=== PATIENT | female | born 1935 | race Caucasian/White ===

== ENCOUNTER 2020-06-06 10:24 | Emergency (ER) | payer OTHER, BC ==
[2020-06-06 12:01] LABS: Absolute Lymphocytes (CBC) 1.1 K/uL (0.7-4.9); Basophils % 0.5 % (0-1.3); Hematocrit 42.9 % (36.0-45.0); Lymphocytes % 21.9 % (15.3-44.8); MPV 10.4 fL (7.6-11.3)
[2020-06-06 12:09] LABS: Potassium 3.5 mmol/L (3.5-5.1)
--- NOTE | 2020-06-06 12:15 | RAD REPORT ---
EXAM DESCRIPTION: CT - Stone Protocol - 06/06/2020 11:27 am CLINICAL HISTORY: CONSTIPATION COMPARISON: No comparisons TECHNIQUE: Axial [address] imaging of the abdomen and pelvis was performed without IV contrast. No IV contrast was given because of allergy, abnormal renal function, patient refusal or physician re quest. No oral contrast administered. All CT scans are performed using dose optimization technique as appropriate and may include automated exposure control or mA/KV adjustment according to patient size. FINDINGS: No suspicious findings in the lung bases. Cardiomegaly is suspected with minimal pericardi al effusion. Initial images the examination includes a portion of the right breast where there is a 19 millimeter oval mass. The liver, spleen and pancreas show no suspicious findings on non-contrast imaging. Gallbladder is pa cked with multiple large gallstones. No dilatation, wall thickening or pericholecystic fluid. No bili dread tree abnormality. No hydronephrosis or suspicious renal mass. Bilateral adrenal nodularity is present not likely clini loreta significant. Isodense renal masses and pyelonephritis cannot be excluded in the absence of IV c ontrast. The urinary bladder is without significant finding. An enlarged lobulated multi fibroid uter us is present. There is a large partially calcified mass filling the fundus. The multiple fibroids ar e not clearly demarcated. Follow-up outpatient pelvic sonography can be obtained as clinical findings warrant. Rectum is dilated to 8 cm and packed with stool. No evidence for an inguinal or distal rectal mass. N o inflammatory stranding seen. Tortuous and redundant sigmoid colon shows moderate volume without dil atation. Remainder of the colon shows little bowel content. No acute gastric or small bowel finding. Patient has a minimal hiatal hernia. No free air, pneumatosis or free fluid. No bulky lymphadenopathy. Small nonspecific iliac chain lymph nodes are present. Patient has a low-ly ing pannus that extends over the pubic symphysis. There is minimal stranding in the adjacent fatty ti ssues. Approximately 8 centimeter fat containing periumbilical hernia present. No congestion or edema . No suspicious bony findings. IMPRESSION: Rectum is dilated to 8 cm by large stool volume. An obstructing inguinal or distal recta l mass not identified. Moderate stool volume is present in the nondilated sigmoid colon. Patient has a 19 millimeter right breast mass that is only partially imaged on this study. No mammogr aphy is been performed at this facility. Follow-up outpatient mammogram could be performed if the pat ient has not undergone recent mammography at an outside facility. Multi stone cholelithiasis. Enlarged lobulated multi fibroid uterus. Probably benign mild bilateral a drenal nodularity. Large pannus with 8 centimeter fat only periumbilical hernia. Full assessment is limited is the absence of IV contrast.
[2020-06-06] MEDS ORDERED: MAGNESIUM CITRATE 300 ML BOT ONE (12:48)
--- NOTE | 2020-06-06 13:34 | EDPHYS ---
Physician Documentation [facility] Name: Mahnaz Stewart Age: 84 yrs Sex: Female : 1935 Arrival Date: 06/06/2020 Time: 10:27 Bed 15 Private MD: LEIGH Physician Ian Jeronimo HPI: 06/06 11:25 This 84 yrs old Female presents to ER via Unassigned with complaints of jmm Constipation. 11:25 The patient presents with rectal fullness. Onset: The symptoms/episode began/occurred 5 jmm day(s) ago. Associated signs and symptoms: Pertinent positives: constipation, Pertinent negatives: nausea and vomiting, diarrhea, fever. Modifying factors: The symptoms are alleviated by nothing, the symptoms are aggravated by. The patient has not experienced similar symptoms in the past. Historical: - Allergies: 10:40 PENICILLINS; bp - Home Meds: 10:30 Coreg 25 mg Oral tab 1 tab 2 times per day [Active]; amlodipine 10 mg tab 1 tab once bp daily [Active]; doxazosin 2 mg oral tab 1 tab once daily [Active]; Lasix 80 mg Oral tab 1 tab once daily [Active]; levothyroxine 125 mcg tab 1 tab once daily [Active]; Klor-Con 10 10 mEq Oral TbER 1 tab once daily [Active]; - PMHx: 10:32 Hypertension; Thyroid problem; bp - Immunization history:: Adult Immunizations up to date. - Social history:: Smoking status: Patient denies any tobacco usage or history of. ROS: 11:25 Constitutional: Negative for fever, chills, and weight loss, Eyes: Negative for injury, jmm pain, redness, and discharge, ENT: Negative for injury, pain, and discharge, Neck: Negative for injury, pain, and swelling, Cardiovascular: Negative for chest pain, palpitations, and edema, Respiratory: Negative for shortness of breath, cough, wheezing, and pleuritic chest pain, Abdomen/GI: Negative for abdominal pain, nausea, vomiting, diarrhea, and constipation, Back: Negative for injury and pain, MS/Extremity: Negative for injury and deformity, Skin: Negative for injury, rash, and discoloration, Neuro: Negative for headache, weakness, numbness, tingling, and seizure, Psych: Negative for depression, anxiety, suicide ideation, homicidal ideation, and hallucinations. 11:25 All other systems are negative. Exam: 11:25 Constitutional: This is a well developed, well nourished patient who is awake, alert, jmm and in no acute distress. Head/Face: atraumatic. Eyes: EOMI, no conjunctival erythema appreciated ENT: Moist Mucus Membranes Neck: Trachea midline, Supple Chest/axilla: Normal chest wall appearance and motion. Cardiovascular: Regular rate and rhythm. No edema appreciated Respiratory: Normal respirations, no respiratory distress appreciated 11:25 Skin: General appearance color normal MS/ Extremity: Moves all extremities, no obvious deformities appreciated, no edema noted to the lower extremities Neuro: Awake and alert, normal gait Psych: Behavior is normal, Mood is normal, Patient is cooperative and pleasant 11:25 Abdomen/GI: Inspection: obese Palpation: abdomen is soft and non-tender, in all quadrants. Vital Signs: 10:27 BP 132 / 77; Pulse 80; Resp 16; Temp 98.3; Pulse Ox 100% ; bp 11:51 BP 144 / 60; Pulse 76; Resp 16; Pulse Ox 95% ; bp 12:35 BP 155 / 65; Pulse 64; Resp 16; Pulse Ox 97% ; bp 13:50 BP 147 / 65; Pulse 67; Resp 17; Temp 98.5; Pulse Ox 96% ; bp MDM: 10:33 Patient medically screened. paula 13:33 Data reviewed: vital signs, nurses notes. Counseling: I had a detailed discussion with valeria the patient and/or guardian regarding: the historical points, exam findings, and any diagnostic results supporting the discharge/admit diagnosis, radiology results, the need for outpatient follow up, to return to the emergency department if symptoms worsen or persist or if there are any questions or concerns that arise at home. ED course: Patient relieved in the ED. Advised to follow up with pcp for reevaluation. Patient is otherwise given strict return precautions. Patient understood and agrees with the plan of care. . 06/06 10:53 Order name: BMP; Complete Time: 12:16 [facility] 06/06 10:53 Order name: CBC with Diff; Complete Time: 12:16 [facility] 06/06 10:53 Order name: CT Stone Protocol; Complete Time: 12:16 [facility] 06/06 10:53 Order name: Saline Lock; Complete Time: 11:50 [facility] Administered Medications: 12:30 Drug: Magnesium Citrate Liquid 300 ml Route: PO; bp 13:50 Follow up: Response: Marked relief of symptoms bp 13:50 CANCELLED (Patient Refused): Fleet Enema 133 ml MA once bp Disposition: 06/07 09:41 Co-signature as Attending Physician, Ian Jeronimo MD I agree with the assessment and paula plan of care. Disposition: 06/06/20 13:34 Discharged to Home. Impression: Constipation, unspecified. - Condition is Stable. - Discharge Instructions: Constipation, Adult. - Medication Reconciliation Form, Thank You Letter, Antibiotic Education, Prescription Opioid Use form. - Follow up: Private Physician; When: 2 - 3 days; Reason: Recheck today's complaints, Continuance of care, Re-evaluation by your physician. Signatures: Dispatcher [employer] EDIan Garcia MD MD cha Mickail, Joel, PA PA jmm Williams, Irene, RN RN iw Chris Cooper RN RN bp Corrections: (The following items were deleted from the chart) 06/06 10:41 10:32 Allergies: No Known Allergies; bp bp 13:50 13:13 Fleet Enema 133 ml MA once ordered. [facility] bp 14:54 13:34 06/06/2020 13:34 Discharged to Home. Impression: Constipation, unspecified. iw Condition is Stable. Forms are Medication Reconciliation Form, Thank You Letter, Antibiotic Education, Prescription Opioid Use. Follow up: Private Physician; When: 2 - 3 days; Reason: Recheck today's complaints, Continuance of care, Re-evaluation by your physician. [facility]
--- NOTE | 2020-06-06 13:34 | ER ---
Nurse's Notes [facility] Name: Mahnaz Stewart Age: 84 yrs Sex: Female : 1935 Arrival Date: 06/06/2020 Time: 10:27 Bed 15 [facility] MD: Diagnosis: Constipation, unspecified Presentation: 06/06 10:27 Chief complaint: EMS states: CONSTIPATION x5 DAYS, NO RELIEF WITH OTC REMEDIES. bp Coronavirus screen: At this time, the client does not indicate any symptoms associated with coronavirus-19. Ebola Screen: No symptoms or risks identified at this time. Initial Sepsis Screen: Does the patient meet any 2 criteria? No. Patient's initial sepsis screen is negative. Does the patient have a suspected source of infection? No. Patient's initial sepsis screen is negative. Risk Assessment: Do you want to hurt yourself or someone else? Patient reports no desire to harm self or others. 10:27 Method Of Arrival: : [facility] bp 10:27 Acuity: LESLY 3 bp Triage Assessment: 10:32 General: Appears distressed, uncomfortable, obese, Behavior is cooperative, appropriate bp for age, anxious. Pain: Complains of pain in buttocks. EENT: No deficits noted. Neuro: No deficits noted. Cardiovascular: No deficits noted. Respiratory: No deficits noted. GI: : No signs and/or symptoms were reported regarding the genitourinary system. Derm: No deficits noted. Musculoskeletal: No deficits noted. Historical: - Allergies: 10:40 PENICILLINS; bp - Home Meds: 10:30 Coreg 25 mg Oral tab 1 tab 2 times per day [Active]; amlodipine 10 mg tab 1 tab once bp daily [Active]; doxazosin 2 mg oral tab 1 tab once daily [Active]; Lasix 80 mg Oral tab 1 tab once daily [Active]; levothyroxine 125 mcg tab 1 tab once daily [Active]; Klor-Con 10 10 mEq Oral TbER 1 tab once daily [Active]; - PMHx: 10:32 Hypertension; Thyroid problem; bp - Immunization history:: Adult Immunizations up to date. - Social history:: Smoking status: Patient denies any tobacco usage or history of. Screenin:40 Abuse screen: Denies threats or abuse. Denies injuries from another. Nutritional bp screening: No deficits noted. Tuberculosis screening: No symptoms or risk factors identified. Fall Risk None identified. Assessment: 10:37 General: SEE TRIAGE NOTE. GI: Abd is soft. bp 11:50 Reassessment: No changes from previously documented assessment. Patient and/or family bp updated on plan of care and expected duration. Pain level reassessed. Patient is alert, oriented x 3, equal unlabored respirations, skin warm/dry/pink. PT RETURNED FROM CT. 12:36 Reassessment: No changes from previously documented assessment. Patient and/or family bp updated on plan of care and expected duration. Pain level reassessed. Patient is alert, oriented x 3, equal unlabored respirations, skin warm/dry/pink. PT DRINKING MAG CITRATE. 13:50 Reassessment: Patient appears in no apparent distress at this time. Patient and/or bp family updated on plan of care and expected duration. Pain level reassessed. Patient is alert, oriented x 3, equal unlabored respirations, skin warm/dry/pink. PT HAS SUCCESSFUL LARGE BOWEL MOVEMENT Patient states feeling better. 14:10 Reassessment: D/C ON HOLD FOR TRANSPORT ARRANGEMENT. bp Vital Signs: 10:27 BP 132 / 77; Pulse 80; Resp 16; Temp 98.3; Pulse Ox 100% ; bp 11:51 BP 144 / 60; Pulse 76; Resp 16; Pulse Ox 95% ; bp 12:35 BP 155 / 65; Pulse 64; Resp 16; Pulse Ox 97% ; bp 13:50 BP 147 / 65; Pulse 67; Resp 17; Temp 98.5; Pulse Ox 96% ; bp ED Course: 10:27 Patient arrived in ED. bp 10:29 Triage completed. bp 10:29 Luís Evans PA is PHCP. jmm 10:29 Ian Jeronimo MD is Attending Physician. jmm 10:32 Arm band placed on. bp 10:40 Patient has correct armband on for positive identification. Bed in low position. Call bp light in reach. Side rails up X2. 11:06 Chris Cooper, RN is Primary Nurse. bp 11:26 CT Stone Protocol In Process Unspecified. EDMS 11:50 Inserted saline lock: 20 gauge in right antecubital area, using aseptic technique. bp 14:53 No provider procedures requiring assistance completed. IV discontinued, intact, iw bleeding controlled, No redness/swelling at site. Pressure dressing applied. Administered Medications: 12:30 Drug: Magnesium Citrate Liquid 300 ml Route: PO; bp 13:50 Follow up: Response: Marked relief of symptoms bp 13:50 CANCELLED (Patient Refused): Fleet Enema 133 ml OK once bp Outcome: 13:34 Discharge ordered by MD. shaw 14:53 Discharged to home via wheelchair, with family. iw 14:53 Condition: good 14:53 Discharge instructions given to patient, Instructed on discharge instructions, follow up and referral plans. Demonstrated understanding of instructions, follow-up care. 14:54 Patient left the ED. iw Signatures: Dispatcher [employer] EDMS Luís Evans PA PA jmm Williams, Irene, RN RN iw Chris Cooper RN RN bp Corrections: (The following items were deleted from the chart) 10:41 10:32 Allergies: No Known Allergies; bp bp
[2020-06-06] MEDS ORDERED: FLEET ENEMA ADULT PR ONE (13:35)
== END 2020-06-06 14:54 | disposition home or self-care (01) ==
LOC: ER 10:24
DX: K59.00 Constipation, unspecified (principal); I10 Essential (primary) hypertension
CPT/HCPCS: 36415; 74176; 76377; 80048; 85025; 99284